=== PATIENT | female | born 1980 | race African-American/Black ===

== ENCOUNTER 2017-09-22 07:28 | Emergency (ER) | payer OTHER ==
[~2017-09-22] VITALS: Ht 165.1 cm; Wt 129.7 kg
[~2017-09-22 07:28] MED LIST: ADVAIR 250-501 EACH IH; ADVAIR 250-501 EACH INH; ALBUTEROL2.5 MG/0.5 INH; AVELOX 400 MG400 MG; AZITHROMYCIN 2250 MG PO; AZITHROMYCIN PO; CELEXA 20 MG TA20 M1 PO; CIPROFLOXACIN500 M1 PO; COMBIVENT PO; DIOVAN HCT 1601 EACH PO; DIOVAN HCT 3201 EAC1 PO; FEMCON FE TABL1 EACH PO; FERRONATE325 MG PO; GLUCOPHAGE1000 MG PO; GLUCOPHAGE500 MG PO; IBUPROFEN 200200 M1 PO; IBUPROFEN 400400 M2; IRON325 PO; LASIX 20 MG TAB20 MG PO; LEVOTHROID50 MCG PO; LEVOXYL112 MCG PO; MEDROLDOSEPACK; MULTI-VITAMIN1 EAC1 PO; ORTHO-NOVUM1 EAC2 PO; PREDNISONE 20 M20 M1 PO; PREDNISONE 20 M20 MG PO; PREDNISONE 5 MG5 M1; PREDNISONE50 MG PO; PROAIR HFA8.5 GM IH; PROTONIX40 MG PO; SINGULAIR 10 MG10 M1 PO; SYNTHROID100 MCG PO; SYNTHROID137 MCG PO; VENTOLIN HFA 1818 GM INH
[2017-09-22] MEDS ORDERED: DIOVAN 80 MG TA80 M1 PO (07:40)
[2017-09-22 09:32] VITALS: BP 129/59
== END 2017-09-22 09:33 | disposition home or self-care (01) ==
LOC: ER 07:28
DX: T59.811A Toxic effect of smoke, accidental (unintentional), initial encounter (principal); J98.01 Acute bronchospasm; J70.5 Respiratory conditions due to smoke inhalation; Y92.89 Other specified places as the place of occurrence of the external cause; I10 Essential (primary) hypertension; E11.9 Type 2 diabetes mellitus without complications; F10.99 Alcohol use, unspecified with unspecified alcohol-induced disorder; Z88.8 Allergy status to other drugs, medicaments and biological substances

== ENCOUNTER 2019-10-22 01:35 | Emergency (ER) | payer OTHER ==
[~2019-10-22] VITALS: Ht 165.1 cm; Wt 127.0 kg
[~2019-10-22 01:35] MED LIST changes: +DIOVAN 80 MG TA80 M1 PO
[2019-10-22] MEDS ORDERED: ALBUTEROL2.5 MG/31 INH (03:07)
[2019-10-22] MEDS ORDERED: PREDNISONE 20 M20 MG PO (03:07)
[2019-10-22] MEDS ORDERED: IPRATROPIU0.2 MG/1 M INH (03:07)
[2019-10-22 03:24] VITALS: BP 204/94
--- NOTE | 2019-10-22 07:44 | EKG ---
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 : 1980 Requested By: Favio Velazquez Order Number: [id number] MD: Vargas Lucero Measurements Intervals [place] Rate: 86 P: -14 CT: 146 QRS: 43 QRSD: 88 T: -43 QT: 356 QTc: 426 Interpretive Statements Sinus rhythm Nonspecific T abnormalities Compared to ECG 08/23/2016 06:51:35 No significant changes Electronically Signed On 10-22-2019 7:44:10 FAMILY SERVICE AIDE by Vagras Lucero [email or web address] <ELECTRONICALLY SIGNED> By: Vargas Lucero MD, [facility] 10/22/19 0744 0147 014 Vargas Lucero MD, FACC /EPI
== END 2019-10-22 03:26 | disposition home or self-care (01) ==
LOC: ER 01:35
DX: J45.901 Unspecified asthma with (acute) exacerbation (principal); I10 Essential (primary) hypertension; E66.9 Obesity, unspecified; Z68.42 Body mass index [BMI] 45.0-49.9, adult; Z98.890 Other specified postprocedural states; Z88.8 Allergy status to other drugs, medicaments and biological substances

== ENCOUNTER 2020-05-12 03:29 | Emergency (ER) | payer OTHER ==
[~2020-05-12] VITALS: Ht 167.6 cm; Wt 127.0 kg
[~2020-05-12 03:29] MED LIST changes: +ALBUTEROL2.5 MG/31 INH; +IPRATROPIU0.2 MG/1 M INH
[2020-05-12] MEDS ORDERED: EUTHYROX200 MCG PO (03:37)
[2020-05-12] MEDS ORDERED: NORVASC5 M1 PO (03:38)
[2020-05-12] MEDS ORDERED: BENICAR HCT 201 EACH PO (03:38)
[2020-05-12 04:32] LABS: ABSOLUTE NEUTROPHILS 2.7 thou/uL (1.4-8.2); ANION GAP 8 mmol/L (7-16); BASOPHILS 2.2 % (0.0-2.0); BUN 12 mg/dL (7-18); CHLORIDE 96 mmol/L (98-107); CO2 28 mmol/L (21-32); CREATININE 0.8 mg/dL (0.6-1.0); EOSINOPHILS 1.7 % (0.0-3.0); GLUCOSE 246 mg/dL (74-106); HEMATOCRIT 39.6 % (37.0-47.0); HEMOGLOBIN 12.7 gm/dL (12.0-15.0); LYMPHOCYTES 48.1 % (24.0-44.0); MCH 26.3 pg (26.0-34.0); MCHC 32.1 g/dL (28.0-37.0); MCV 81.8 fL (80.0-100.0); MONOCYTES 8.1 % (1.0-8.0); PLATELET COUNT 401 thou/uL (150-400); POLYS 39.9 % (36.0-66.0); POTASSIUM 3.6 mmol/L (3.5-5.1); RBC 4.84 mil/uL (4.20-5.00); RDW 17.9 % (10.5-14.5); SODIUM 132 mmol/L (136-145); WBC 6.8 thou/uL (4.0-11.0)
[2020-05-12 04:43] LABS: ALBUMIN 3.3 g/dL (3.4-5.0); LIPASE 165 U/L (73-393); SGOT 25 U/L (15-37); SGPT 43 U/L (30-65); TOTAL BILIRUBIN 0.6 mg/dL (0.2-1.0); TOTAL PROTEIN 7.9 g/dL (6.4-8.2); TROPONIN-I <0.06 ng/mL (<0.06)
[2020-05-12] MEDS ORDERED: PEPCID20 MG PO (05:09)
[2020-05-12 05:12] VITALS: BP 177/90
--- NOTE | 2020-05-12 07:44 | EKG ---
[facility] [place] [address] ELECTROCARDIOGRAM REPORT Name: LISA HERNANDEZ Room #: DEP [facility]#: [id number] Admission: 05/12/20 Attend Phys: Discharge: 05/12/20 Date of : [birth year] Report #: [id number] THIS REPORT FOR: cc: Trini Barney MD, Karla L. MD Lundgren,Vargas Santos MD 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: : 1980 Requested By: Jimmy Vazquez Order Number: [id number] MD: Vargas Lucero Measurements Intervals [place] Rate: 85 P: 43 MI: 142 QRS: 49 QRSD: 86 T: -5 QT: 361 QTc: 430 Interpretive Statements Sinus rhythm No significant abnormality Compared to ECG 10/22/2019 01:47:19 T-wave abnormality no longer present Electronically Signed On 05-12-2020 7:43:23 CDT by Vargas Lucero [email or web address] <ELECTRONICALLY SIGNED> By: Vargas Lucero MD, FACC 05/12/20 0743 [id number] 0345 Vargas Lucero MD, [facility] /EPI
== END 2020-05-12 05:17 | disposition home or self-care (01) ==
LOC: ER 03:29
PROVIDERS: Emergency Medicine
DX: R07.9 Chest pain, unspecified (principal); R06.02 Shortness of breath; I10 Essential (primary) hypertension; J45.909 Unspecified asthma, uncomplicated; E11.9 Type 2 diabetes mellitus without complications; Z98.890 Other specified postprocedural states; Z79.899 Other long term (current) drug therapy; Z88.8 Allergy status to other drugs, medicaments and biological substances